=== PATIENT | male | born 1950 | race Caucasian/White ===

== ENCOUNTER 2022-05-05 07:53 | Emergency (ER) | payer OTHER ==
[~2022-05-05] VITALS: Ht 195.6 cm; Wt 100.0 kg
[~2022-05-05 07:53] MED LIST: ASPI-247 PO; MAGN400C3 PO; SIMV-13 PO; SOTA80TA PO
[2022-05-05 08:33] VITALS: BP 151/84
== END 2022-05-05 10:13 | disposition left against medical advice (07) ==
LOC: ER 07:53
DX: R20.2 Paresthesia of skin (principal); R42 Dizziness and giddiness; Z53.21 Procedure and treatment not carried out due to patient leaving prior to being seen by health care provider